=== PATIENT | male | born 1985 | race Caucasian/White ===

== ENCOUNTER 2023-04-22 22:12 | Inpatient (IN) | payer OTHER, SELFPAY ==
[2023-04-22 22:42] VITALS: BP 141/73; BP 159/96; PULSE 72; PULSE 77; RESP 13; TEMP 36.9; O2SAT 95; O2SAT 98; BMI 19.9
--- NOTE | 2023-04-22 22:48 | ED.GENADULT ---
HPI - General Adult General Chief complaint: Skin/Abscess/Foreign Body Stated complaint: OD Time Seen by Provider: 04/22/23 22:30 Source: patient and family Mode of arrival: EMS Limitations: no limitations History of Present Illness HPI narrative: Patient comes accompanied by his via ambulance. Patient complaining of cellulitis in his right thigh posteriorly. Patient states that ?something bit him?, patient admits to IV drug use. Patient states that 2 weeks ago he noticed a lump in his thigh and it has been getting much bigger and very painful. Patient can barely walk on his leg due to pain, patient complaining of subjective fever, no chills, no other injuries. Related Data Allergies Allergy/AdvReac Type Severity Reaction Status Date / Time doxycycline [From VIBRAMYCIN] Allergy Intermediate HIVES Unverified 04/22/23 23:36 acetaminophen [From VICODIN] Allergy Unknown DIFFICULTY Unverified 04/22/23 23:36 BREATHING hydrocodone [From VICODIN] Allergy Unknown DIFFICULTY Unverified 04/22/23 23:36 BREATHING Review of Systems Review of Systems: Constitutional : No Weight loss, No Fever, No Chills, No Night Sweats, complain of chronic fatigue ENT/Mouth : No Hearing loss, No Ear Pain, No Nasal Congestion, No Sinus Pain, No Hoarseness, No sore throat, No Rhinorrhea, No Swallowing Difficulty Eyes: No Eye Pain, No Swelling, No Redness, No Foreign Body, No Discharge, No Vision Changes Cardiovascular : No Chest Pain, No SOB, No Dyspnea on Exertion, No Orthopnea, No Edema, No Palpitations Respiratory : No Cough, No Sputum, No Wheezing, No Smoke Exposure, No Dyspnea Gastrointestinal : No Nausea, No Vomiting, No Diarrhea, No Constipation, No abdominal Pain, No Hematochezia, No Melena Genitourinary : no irregular bleeding, No Dysuria, No Urinary Frequency, No Hematuria, No Urinary Incontinence, No Urgency, No Flank Pain, No Urinary Flow Changes, No Hesitancy Musculoskeletal : No joint pain, No Myalgias, No Joint Swelling Skin : Complaining of cellulitis in the right lower extremity Neuro : No Weakness, No Numbness, No Paresthesias, No Loss of Consciousness, No Dizziness, No Headache Psych : No Anxiety/Panic, No Depression, No SI/HI/AH/VH, No Social Issues, Heme/Lymph: No Bruising, No Bleeding,No Lymphadenopathy Endocrine : No Polyuria, No Polydipsia, No Temperature Intolerance [facility] Past Medical History Medical History IV drug user Social History Social History Alcohol intake: current Smoked in Last 30 Days: Yes Use of substances other than those prescribed or required for medical reasons: Yes Substance Use Type: Heroin Substance Use Frequency: Chronic Longstanding Advance Directives: No Advance Directives Information Provided: Yes Physical Exam ED Vital Signs: Vital Signs - 24 hr 04/22/23 22:42 Temperature 98.4 F Pulse Rate 77 Respiratory Rate 13 Blood Pressure 141/73 H Pulse Oximetry 98 Oxygen Delivery Method Room Air BMI result Body Mass Index 19.9 Const Other: Appearance: Alert. Oriented X3. No acute distress. Eyes: Pupils equal, round and reactive to light. ENT: Pharynx normal. Neck: Normal inspection. Neck supple. No lymph nodes noted. No crepitus CVS: Normal heart rate and rhythm. Pulses normal. Normal S1 and S2 Respiratory: No respiratory distress. Breath sounds normal. No Wheezing. No rales Abdomen: Soft and nontender. No rigidity. No distention. Skin: Skin warm and dry. There is an abscess with ulceration in the posterior middle aspect of the right thigh with surrounding cellulitis Extremities: No lower extremity edema. No Lacerations. No Rash Neuro: Oriented X 3. No motor deficit. No sensory deficit. Moving all extremities. No slurred speech. CN 2 through 12 grossly intact Psych: calm, cooperative, normal affect Course Course Course Narrative: -all of patient's labs pending -patient's vitals are stable -patient receiving IV fluids, IV Zosyn, vancomycin, sepsis is not suspected Medications Administered Generic Name Dose Route Start Last Admin Trade Name Freq PRN Reason Stop Dose Admin Enoxaparin Sodium 40 mg 04/23/23 00:00 04/23/23 00:36 Enoxaparin Sodium 40 Mg/0.4 Ml Syringe SUBCUT Not Given Q24H BHAVANA Piperacillin Sod/Tazobactam 50 mls @ 100 mls/hr 04/23/23 00:00 04/23/23 00:35 Sod 3.375 gm/ Sodium Chloride IV Not Given Q6H BHAVANA Sodium Chloride 3 ml 04/23/23 00:00 04/23/23 00:36 0.9 % Sodium Chloride Flush 3 Ml Syringe IVFLUSH 3 ml QSHIFT BHAVANA Administration Discontinued Medications Generic Name Dose Route Start Last Admin Trade Name Rehan PRN Reason Stop Dose Admin Sodium Chloride 1,000 mls @ 999 mls/hr 04/22/23 22:40 04/23/23 00:00 Ns IVCONT 04/22/23 23:40 999 mls/hr .Q1H1M ONE Administration Piperacillin Sod/Tazobactam 50 mls @ 100 mls/hr 04/22/23 22:40 04/23/23 00:09 Sod 3.375 gm/ Sodium Chloride IV 04/22/23 23:09 100 mls/hr ONCE ONE Administration Vancomycin HCl 1,500 mg/ 500 mls @ 333.333 mls/hr 04/22/23 23:00 04/23/23 00:18 Sodium Chloride IV 04/23/23 00:29 333.33 mls/hr ONCE ONE Administration Vancomycin HCl 1,000 mg/ 270 mls @ 270 mls/hr 04/22/23 23:45 04/23/23 00:35 Sodium Chloride IV Not Given Q12H [facility] Medical Decision Making Medical Decision Making [facility] Narrative: -I discussed the patient with Dr. Hodges, patient being admitted -I considered draining the abscess. However, patient will need a thorough debridement tomorrow. The leg abscess does not seem significantly fluctuant, unlikely to get significant amount of pus -patient white blood cell count within normal limits. Blood pressure normal, no fever, sepsis not suspected. -Patient getting IV fluids, vancomycin, Zosyn. Differential Diagnosis Differential Diagnoses: The differential diagnosis associated with the presentation includes (Cellulitis, abscess) Admission/Observation Consideration of admission/observation: Escalation of care including admission/observation considered Consult Healthcare Provider Management of the patient was discussed with: Hospitalist Lab Data 04/22/23 23:57 04/22/23 23:57 Labs: Lab Results 04/22/23 Range/Units 23:57 WBC 9.1 (4.8-10.8) X10*3/uL RBC 4.97 (4.60-5.80) X10*6/uL Hgb 13.5 L (14.0-18.0) g/dl Hct 40.5 L (42.0-52.0) % MCV 81.5 (80.0-98.0) fL MCH 27.2 (27.0-33.0) pg MCHC 33.3 (31.0-36.0) g/dl RDW 12.8 (11.0-16.0) % Plt Count 246 (160-400) X10*3/uL MPV 10.7 (9.4-12.4) fL Immature Gran % (Auto) 0.3 (0.0-0.4) % Neut % (Auto) 75.0 H (45-73) % Lymph % (Auto) 16.6 L (20-40) % [place] % (Auto) 7.1 (2-11) % Eos % (Auto) 0.7 (0-4) % Baso % (Auto) 0.3 (0-2) % Lymph # (Auto) 1.5 (1.2-4.9) X10*3/uL [place] # (Auto) 0.6 (0.1-1.2) X10*3/uL Eos # (Auto) 0.1 (0.0-0.4) X10*3/uL Baso # (Auto) 0.0 (0.0-0.2) X10*3/uL Abs Immat Gran (auto) 0.03 (0.00-0.03) X10*3/uL Absolute Neuts (auto) 6.8 (2.0-8.3) x10*3/uL Absolute Nucleated RBC 0.000 (0.0-0.012) X10*3/uL Nucleated RBC % (auto) 0.0 (0.0-0.2) /100WBC Sodium 140 (135-145) mmol/L Potassium 3.3 (3.3-5.1) mmol/L Chloride 99 (96-108) mmol/L Carbon Dioxide 27 (22-29) mmol/L Anion Gap 17 (12-20) BUN 4 L (9-16) mg/dL Creatinine 0.67 (0.5-1.4) mg/dL Estim Creat Clear Calc 117.0 Estimated GFR > 60 Random Glucose 110 (60-115) mg/dL Lactic Acid 0.8 (0.5-2.0) mmol/L Calcium 9.5 (8.4-10.2) mg/dL Total Bilirubin 0.6 (0.0-1.0) mg/dL Direct Bilirubin 0.4 (0.0-0.5) mg/dL AST 32 (5-37) U/L ALT 34 (0-40) U/L Alkaline Phosphatase 86 (39-117) U/L Total Protein 7.8 (6.5-8.0) g/dL Albumin 3.8 (3.5-5.0) g/dL Ethyl Alcohol < 10 mg/dL Critical Care Time Critical Care Time Critical Care Time: Yes Total Critical Care Time: 60 Attestation: I have personally provided critical care time. Time includes review of lab data, radiology results, discussion with consultants, and monitoring for potential decompensation. Intervention performed as documented. Discharge Plan Discharge Clinical Impression: Cellulitis and abscess of leg Patient Disposition: Admitted As Inpatient
--- NOTE | 2023-04-22 23:11 | MHC.EDTECH ---
attempted blood work x2 unsuccessful. rn gerald aware
--- NOTE | 2023-04-22 23:59 | PM.IMHP ---
History of Present Illness Date of Service: 04/22/23 Chief Complaint: skin infection I was asked to see this patient who is a 37-year-old IV drug user for evaluation of an abscess in his right leg for management of cellulitis/abscess - patient is somnolent, appears to be very high on some sort of drug, therefore his mother was at bedside gives me most of the history. After admissions, start antibiotics, patient sobered up, woke up, and requesting to leave as he is withdrawing. I have offered him Dilaudid, as well as Suboxone, he took the Dilaudid, refuses Suboxone, now wants to leave AMA. I talked to the patient, he understands the risk is seeking by leaving which includes from sepsis, patient understands, patient has no suicidal homicidal ideation and will be leaving [facility] Medical History IV drug user Social History Alcohol intake: current Patient Tobacco Use Status: Current everyday Tobacco user Smoked in Last 30 Days: Yes Use of substances other than those prescribed or required for medical reasons: Yes Substance Use Type: Heroin Substance Use Frequency: Chronic Longstanding Advance Directives: No Advance Directives Information Provided: Yes Nutrition Risks: No Nutritional Risk Meds Allergies Allergy/AdvReac Type Severity Reaction Status Date / Time doxycycline [From VIBRAMYCIN] Allergy Intermediate HIVES Unverified 04/22/23 23:36 acetaminophen [From VICODIN] Allergy Unknown DIFFICULTY Unverified 04/22/23 23:36 BREATHING hydrocodone [From VICODIN] Allergy Unknown DIFFICULTY Unverified 04/22/23 23:36 BREATHING Active Medications: Current Medications Vancomycin HCl 1,500 mg/ (Sodium Chloride) 500 mls @ 333.333 mls/hr IV ONCE ONE Stop: 04/23/23 00:29 Pharmacy Consult (Consult Rx Vancomycin Dosing) 1 each MISCELLANE DAILY PRN PRN Reason: Consult order Physical Exam Vital Signs and Narrative: Vital Signs: Last Vital Signs Temp 98.4 F 04/22/23 22:42 Pulse 77 04/22/23 22:42 Resp 13 04/22/23 22:42 BP 141/73 H 04/22/23 22:42 Pulse Ox 98 04/22/23 22:42 O2 Del Method Room Air 04/22/23 22:42 BMI result Body Mass Index 19.9 Const: Other: On initial exam patient was obtunded, on repeat exam several hours later patient is alert, oriented to self and place, on requesting to leave AMA Skin: Other: Right posterior leg abscess/cellulitis Results Labs 04/22/23 23:57 04/22/23 23:57 Assessment and Plan (1) Injection site abscess: Qualifiers: Encounter type: initial encounter Qualified Code(s): T80.29XA - Infection following other infusion, transfusion and therapeutic injection, initial encounter Status: Acute Plan 37-year-old male with IV drug user comes into the hospital for management of abscess/cellulitis # injection site abscess/cellulitis - according to the mother he injects in that location - has an abscess, no leukocytosis, afebrile - started on antibiotic - patient now requesting to leave AMA Risk of leaving AMA which include sepsis and was explained to the patient, he understands and he still wants to leave AMA Time Spent With Patient Time: Total time managing care of this patient today ____ minutes. Quality Stroke Does the patient have a stroke diagnosis?: No VTE Prior VTE?: No VTE Risk Level:: Medical - moderate - high VTE Device Contraindication: Treatment Not Indicated VTE Drug Contraindication: N/A - Med Ordered
[2023-04-23] MEDS: 0.9 % Sodium Chloride 1,000 ML 999 ML IVCONT
[2023-04-23 00:04] LABS: MANUAL DIFF FLAG NO
[2023-04-23 00:07] LABS: Basophils Percent Auto 0.3 % (0-2); Eosinophils Absolute Auto 0.1 X10*3/uL (0.0-0.4); Eosinophils Percent Auto 0.7 % (0-4); Hematocrit 40.5 % (42.0-52.0); Hemoglobin 13.5 g/dl (14.0-18.0); Imm Gran Abs Auto 0.03 X10*3/uL (0.00-0.03); Imm Gran Pct Auto 0.3 % (0.0-0.4); Lymphocytes Absolute Auto 1.5 X10*3/uL (1.2-4.9); Lymphocytes Percent Auto 16.6 % (20-40); Mean Corpuscular HGB Conc 33.3 g/dl (31.0-36.0); Mean Corpuscular Hemoglobin 27.2 pg (27.0-33.0); Mean Corpuscular Volume 81.5 fL (80.0-98.0); Mean Platelet Volume 10.7 fL (9.4-12.4); Monocytes Absolute Auto 0.6 X10*3/uL (0.1-1.2); Monocytes Percent Auto 7.1 % (2-11); Neutrophils Absolute Auto 6.8 x10*3/uL (2.0-8.3); Platelet Count 246 X10*3/uL (160-400); Red Blood Count 4.97 X10*6/uL (4.60-5.80); Red Cell Distribution Width 12.8 % (11.0-16.0); White Blood Count 9.1 X10*3/uL (4.8-10.8)
[2023-04-23] MEDS: Piperacillin Sodium/Tazobactam 3.375 GM in 0.9 % Sodium Chloride 50 ML IV ×2 (00:09→05:30)
[2023-04-23 00:15] LABS: Lactic Acid 0.8 mmol/L (0.5-2.0)
[2023-04-23] MEDS: vancomycin HCL 1,500 MG in 0.9 % Sodium Chloride 500 ML 333.33 MG IV (00:18)
[2023-04-23 00:21] LABS: Alanine Aminotransferase 34 U/L (0-40); Albumin Level 3.8 g/dL (3.5-5.0); Alkaline Phosphatase 86 U/L (39-117); Anion Gap 17 (12-20); Aspartate Amino Transferase 32 U/L (5-37); Bilirubin Direct 0.4 mg/dL (0.0-0.5); Bilirubin Total 0.6 mg/dL (0.0-1.0); Blood Urea Nitrogen 4 mg/dL (9-16); Calcium 9.5 mg/dL (8.4-10.2); Carbon Dioxide 27 mmol/L (22-29); Chloride 99 mmol/L (96-108); Estimated Glomerular Filt Rate > 60; Ethanol < 10 mg/dL; Glucose Random 110 mg/dL (60-115); Potassium 3.3 mmol/L (3.3-5.1); Sodium 140 mmol/L (135-145); Total Protein 7.8 g/dL (6.5-8.0)
[2023-04-23] MEDS: 0.9 % Sodium Chloride Flush 3 ML SYRINGE IVFLUSH (00:36)
--- NOTE | 2023-04-23 04:34 | PC.NURSE ---
Pt continues to rest in stretcher without distress noted. RN alerted by Division Plant Engineer that the pt will kiko down to the 40s, lower heart rate noted by this RN was 44. production cloth cutter notified hospitalist via tigertext.
[2023-04-23] MEDS: oxyCODONE HCl Immed Release 5 MG TABLET PO (05:07)
[2023-04-23] MEDS: ondansetron HCL 4 MG/2 ML VIAL IVPUSH (05:07)
[2023-04-23] MEDS: HYDROmorphone HCl 1 MG/ML SYRINGE IVPUSH (05:21)
--- NOTE | 2023-04-23 06:29 | PC.NURSE ---
Pt reported feeling sick and having pain all over. Patient medicated with oxycodone and zofran with no relief. Patient reports using 7 bags of heroin at a time multiple times a day for several years and last use was at approximately 1700 on 04/22/2023. Pt said he needs to use or he is going to be sick. Pt having active vomiting discussed with Dr. Ibrahim and pt given dilaudid. Pt still having vomiting and cramping, discussed with MD and ordered for compazine and suboxone. Pt then refused stating he was going to leave. This RN discussed with patient the risks of leaving and requested he stay for treatment. Pt refused and said he wanted to leave. notified and came to bedside to discuss risks and pt leaving AMA. Pt still continued to leave ama. IV removed. pt belongings returned and patient left with mother,all paperwork signed.
--- NOTE | 2023-04-23 08:43 | MHC.CM.PN ---
Patient left AMA before being seen by case management.
--- NOTE | 2023-04-23 09:35 | P.DS_ITS ---
DS: Providers Provider Date of Service: 04/23/23 Date of admission: 04/22/23 23:58 Primary care physician: None Physician Consults: 04/23/23 05:13 Addiction Medicine Stat Consulting Provider: Addiction Covering Reason for consultation: ivdu Has provider been notified: No DS: Diagnosis Discharge Diagnosis (1) Injection site abscess: Status: Acute DS: Summary Hospital Course Hospital Course: See h and P. Pt left AMA just hours after admission and before shift change Final diagnosis: Cellulitis and abscess of arm Time Spent with Patient Time attestation: Total time managing care of this patient today ____ minutes. Discharge coordination time: Less than 30 minutes Quality: Safe Use of Opioids Does Pt have an Active Cancer Diagnosis on the Problem List?: No Quality: Stroke Does the patient have a stroke diagnosis?: No Physical Exam Vital Signs: Vital Signs: Last Vital Signs Temp 98.4 F 04/22/23 22:42 Pulse 77 04/22/23 22:42 Resp 13 04/22/23 22:42 BP 141/73 H 04/22/23 22:42 Pulse Ox 98 04/22/23 22:42 O2 Del Method Room Air 04/22/23 22:42 BMI result Body Mass Index 19.9 DS: Data Data Completed and Pending Labs on day of discharge: Laboratory Results - last 24 hr 04/22/23 23:57 WBC 9.1 RBC 4.97 Hgb 13.5 L Hct 40.5 L MCV 81.5 MCH 27.2 MCHC 33.3 RDW 12.8 Plt Count 246 MPV 10.7 Immature Gran % (Auto) 0.3 Neut % (Auto) 75.0 H Lymph % (Auto) 16.6 L [place] % (Auto) 7.1 Eos % (Auto) 0.7 Baso % (Auto) 0.3 Lymph # (Auto) 1.5 [place] # (Auto) 0.6 Eos # (Auto) 0.1 Baso # (Auto) 0.0 Abs Immat Gran (auto) 0.03 Absolute Neuts (auto) 6.8 Absolute Nucleated RBC 0.000 Nucleated RBC % (auto) 0.0 Sodium 140 Potassium 3.3 Chloride 99 Carbon Dioxide 27 Anion Gap 17 BUN 4 L Creatinine 0.67 Estim Creat Clear Calc 117.0 Estimated GFR > 60 Random Glucose 110 Lactic Acid 0.8 Calcium 9.5 Total Bilirubin 0.6 Direct Bilirubin 0.4 AST 32 ALT 34 Alkaline Phosphatase 86 Total Protein 7.8 Albumin 3.8 Ethyl Alcohol < 10 Discharge Plan Discharge Anticipated Discharge Date/Time: 04/23/23 09:37 Patient Disposition: Left Against Medical Advice Discharge Diagnosis: Cellulitis Referrals: Physician,None [Primary Care Provider] - 1 Week Discharge Medications: No Action Unobtainable Discharge Orders: Discharge Order (Routine); Ordered 04/23/23 Ordered By: Dirk Lundy Stand Alone Forms: Against Medical Advice Care Plan Goals: left ama Health Concerns: left ama Plan of Treatment: left ama Assessment: left ama
== END 2023-04-23 13:24 | disposition left against medical advice (07) | DRG 603 ==
LOC: HO.ED 23:06 → HO.EDOVER 04-23 00:06
PROVIDERS: Admitting Provider Internal Medicine; Emergency Provider Emergency Medicine; Visit Provider Internal Medicine
DX: L02.415 Cutaneous abscess of right lower limb (principal); L03.115 Cellulitis of right lower limb; F17.210 Nicotine dependence, cigarettes, uncomplicated; Z71.6 Tobacco abuse counseling
CPT/HCPCS: 36415; 80048; 80076; 80307; 83605; 85025; 87040; 99284; J1170; J2405; J2543; J3371

== ENCOUNTER → 2023-04-22 23:58 | Outpatient (BNV) | payer SELFPAY | PROVIDERS: Admitting Provider Internal Medicine; Emergency Provider Emergency Medicine; Visit Provider Internal Medicine | DX: T80.29XA Infection following other infusion, transfusion and therapeutic injection, initial encounter (principal); Z53.29 Procedure and treatment not carried out because of patient's decision for other reasons | CPT/HCPCS: 99223; 99238 ==

== ENCOUNTER 2024-07-04 01:08 | Emergency (ER) | payer MEDICAID, SELFPAY ==
--- NOTE | ~2024-07-04 | CT_ITS ---
EXAMINATION: CT HEAD WITHOUT CONTRAST CLINICAL INFORMATION: Left subdural hematoma. More altered. COMPARISON: CT head 06/11/2017. TECHNIQUE: Contiguous axial imaging was performed from the skull base to vertex without intravenous administration of contrast. This CT examination was performed using dose optimization techniques as appropriate, variously including the following: *Automated exposure control *Adjustment of mA and/or kV according to patient size (this includes techniques or standardized protocols for targeted exams where dose is matched to indication/reason for exam; i.e. extremities or head) *Use of iterative reconstruction technique DLP: 683 mGy-cm FINDINGS: A high density extra-axial fluid collection measuring 3 mm in width is present in the anterior left middle cranial fossa adjacent to the anterior left temporal lobe. Mild diffuse symmetric prominence of ventricles and sulci is noted. No acute infarcts or intracranial tumor is noted. A gas-fluid levels present in the sphenoid sinus (60 Hounsfield units) suspicious for sanguinous fluid. The mastoid air cells and middle ear cavities are clear. Close scrutiny of the sphenoid sinus demonstrates no definitive fractures of the sphenoid sinus. A nondisplaced fracture is present in the left greater wing of the sphenoid extending into the squamous portion of the left temporal bone. A punctate focus of pneumocephalus is present adjacent to the fracture and the left middle cranial fossa extra-axial fluid collection noted above. Nondisplaced fracture of the lateral wall of the left orbit is noted. The fracture extends into the superior margin of the lateral wall of the left maxillary sinus. Mild left retromaxillary soft tissue emphysema is present. Soft tissue and this edema is additionally noted along the anterolateral wall of the left maxillary sinus and a nondisplaced fracture extends along the anterior wall the left maxillary sinus. Possible nondisplaced fracture is noted in the middle segment of the left diaphragmatic arch. Soft tissue inflammatory changes are present adjacent to the left side, and frontal process of the left zygoma. The left globe appears intact. No orbital emphysema identified. Nasal bones are partially excluded from the imaged field of view. Mildly displaced comminuted fracture of the left nasal bone is present and adjacent soft tissue inflammatory changes are noted in the adjacent subcutaneous fat. Nondisplaced lucencies are noted along the lateral aspect of the sphenoid sinus traversing a left lateral sphenoid air cell (series 6 image 80 and along the left lateral aspect of the sphenoid sinus traversing a left lateral sphenoid air cell (series 6 image 83). Punctate minimal pneumocephalus is present along the dorsum sellae (series 6 image 73) suggesting an open skull fracture. CT/CT head/brain wo IV con IMPRESSION: *Left zygomaticomaxillary fracture complex and adjacent intracranial hemorrhage. Minimally displaced fractures are noted in association with the left zygomatic arch, lateral wall of the left orbit, anterior and lateral rojas of the maxillary sinus and left greater wing of the sphenoid with the fracture extending into the squamous portion of the left temporal bone. Additionally, a 3 mm acute extra-axial hemorrhage is present in the anterior left middle cranial fossa adjacent to the fracture of the greater wing of the sphenoid. This finding could represent either a subdural or epidural hematoma. The fluid collection demonstrates a crescentic configuration suggesting it is more likely to represent a subdural hematoma. A single punctate focus of pneumocephalus is present in the extra-axial hemorrhage. No evidence of contusion of the adjacent left temporal lobe. *Comminuted left nasal bone fractures. *Hemorrhage within the sphenoid sinus and possible nondisplaced open fractures of the rojas of the sphenoid sinus. Findings suspicious for an open skull fracture. Single screw is present within the sphenoid sinus. Findings suspicious for possible nondisplaced fractures are noted within the left lateral aspect of the sphenoid sinus, specifically traversing the left lateral sphenoid air cell. Additionally a nondisplaced fracture may be present within a right lateral sphenoid air cell. Minimal pneumocephalus is present along the posterior margin of the posterior wall of the sphenoid sinus further suggesting the presence of an open skull fracture. This critical result was discussed with Dr. Levy STEINBERG by telephone at 07/04/2024 5:57 AM EST and it was ascertained that the content and urgency of the report was understood at the time of direct communication. Electronically signed by: Eliezer Franco MD 07/04/2024 06:04 AM EST
[2024-07-04 01:31] VITALS: BP 155/77; PULSE 86; PULSE 97; RESP 20; TEMP 37.3; O2SAT 97; BMI 21.3
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
[2024-07-04] MEDS: methADONE HCl 20 MG/2 ML ORAL.CONC 80 MG PO (01:52)
--- NOTE | 2024-07-04 02:02 | MHC.EDTECH ---
patient refusing labs to drawn RN aware.
[2024-07-04] MEDS: LORazepam 1 MG TABLET 2 MG PO ×2 (02:18→03:37)
[2024-07-04] MEDS: oxyCODONE HCl Immed Release 5 MG TABLET PO (02:18)
[2024-07-04 02:43] LABS: Appearance Urine Cloudy; Color Urine Yellow; Glucose Urine UA Negative (Negative); Leukocyte Esterase Urine Negative (Negative); Nitrite Urine Negative (Negative); Specific Gravity - Urine >= 1.030 (1.005-1.025); Urine Blood Negative (Negative); Urine Ketones Negative (Negative); Urine Protein Trace mg/dL (Neg-Trace)
[2024-07-04 02:51] LABS: Amphetamine Screen Urine Not Detected (Not Detect); Barbiturates, Urine Not Detected (Not Detect); Benzodiazepines Screen Urine Not Detected (Not Detect); Buprenorphine Scr Not Detected (Not Detect); Cannabinoid Screen Urine Not Detected (Not Detect); Cocaine Screen Urine POSITIVE (Not Detect); Fentanyl, urine POSITIVE (Not Detect); Methadone Screen, Urine Positive (Not Detect); Opiate Screen Urine POSITIVE (Not Detect); Oxycodone Screen Urine Not Detected (Not Detect); Phencyclidine Screen Urine Not Detected (Not Detect)
[2024-07-04] MEDS: OLANZapine ODT 10 MG TAB.RAPDIS TRANSLINGU (03:37)
[2024-07-04 03:57] LABS: Basophils Percent Auto 0.1 % (0-2); Hematocrit 37.2 % (42.0-52.0); Hemoglobin 12.4 g/dl (14.0-18.0); Imm Gran Abs Auto 0.02 X10*3/uL (0.00-0.03); Imm Gran Pct Auto 0.2 % (0.0-0.4); Lymphocytes Absolute Auto 0.9 X10*3/uL (1.2-4.9); MANUAL DIFF FLAG NO; Mean Corpuscular HGB Conc 33.3 g/dl (31.0-36.0); Mean Corpuscular Hemoglobin 27.1 pg (27.0-33.0); Mean Corpuscular Volume 81.2 fL (80.0-98.0); Mean Platelet Volume 10.6 fL (9.4-12.4); Monocytes Absolute Auto 0.7 X10*3/uL (0.1-1.2); Monocytes Percent Auto 7.7 % (2-11); Neutrophils Absolute Auto 7.5 x10*3/uL (2.0-8.3); Platelet Count 187 X10*3/uL (160-400); Red Blood Count 4.58 X10*6/uL (4.60-5.80); Red Cell Distribution Width 13.5 % (11.0-16.0); White Blood Count 9.1 X10*3/uL (4.8-10.8)
[2024-07-04 04:15] LABS: Anion Gap 15 (12-20)
[2024-07-04 04:31] LABS: Alanine Aminotransferase 76 U/L (0-40); Albumin Level 3.8 g/dL (3.5-5.0); Aspartate Amino Transferase 57 U/L (5-37); Bilirubin Total 0.4 mg/dL (0.0-1.0); Blood Urea Nitrogen 10 mg/dL (9-16); Calcium 8.9 mg/dL (8.4-10.2); Carbon Dioxide 27 mmol/L (22-29); Chloride 102 mmol/L (96-108); Estimated Glomerular Filt Rate > 60; Ethanol < 10 mg/dL; Glucose Random 95 mg/dL (60-115); Potassium 3.9 mmol/L (3.3-5.1); Sodium 139 mmol/L (135-145); Total Protein 7.7 g/dL (6.5-8.0)
[2024-07-04 04:52] LABS: Alkaline Phosphatase 90 U/L (39-117)
[2024-07-04 06:00] VITALS: BP 117/62; PULSE 68; RESP 20; TEMP 36.7; O2SAT 97
[2024-07-04] MEDS: OLANZapine 10 MG VIAL IM (06:50)
[2024-07-04] MEDS: Midazolam HCl/PF 2 MG/2 ML VIAL 6 MG IM (06:52)
--- NOTE | 2024-07-04 07:09 | PC.NURSE ---
attempted to call report to [facility], no answer
--- NOTE | 2024-07-04 07:12 | PC.NURSE ---
second attempt to call [facility] for report failed
--- NOTE | 2024-07-04 07:15 | PC.NURSE ---
Third attempt to call [facility] for report failed. no answer.
[2024-07-04 07:18] VITALS: BP 117/62; PULSE 68; RESP 20; TEMP 36.7; O2SAT 97
== END 2024-07-04 07:14 | disposition short-term general hospital (02) ==
PROVIDERS: Emergency Provider Emergency Medicine
DX: R41.82 Altered mental status, unspecified (principal); S06.30AA Unspecified focal traumatic brain injury with loss of consciousness status unknown, initial encounter; S02.80XA Fracture of other specified skull and facial bones, unspecified side, initial encounter for closed fracture; S42.002A Fracture of unspecified part of left clavicle, initial encounter for closed fracture; S42.302A Unspecified fracture of shaft of humerus, left arm, initial encounter for closed fracture; X58.XXXA Exposure to other specified factors, initial encounter; Y93.89 Activity, other specified; Y92.9 Unspecified place or not applicable; Y99.9 Unspecified external cause status
CPT/HCPCS: 36415; 70450; 80053; 80307; 81003; 85025; 96372; 99285; J2250; J2359

== ENCOUNTER 2024-08-21 14:01 | Outpatient (REF) | payer MEDICAID, SELFPAY ==
--- NOTE | ~2024-08-21 | XR_ITS ---
EXAMINATION: XR FOREARM, LEFT CLINICAL INFORMATION: prior fracture COMPARISON: Close nondisplaced fracture of clavicle TECHNIQUE: AP and lateral views of the left forearm were obtained. FINDINGS- XR/XR forearm LT 2V IMPRESSION: There are mid Radial and distal ulnar fractures tube lies with dorsal plates and screws in satisfactory alignment. No soft tissue abnormality seen. In addition there is dorsal metallic circular ring and screws overlying the wrist stabilizing the dorsal carpal bones. It appears the scaphoid bone has been removed. Dorsal soft tissue swelling is seen. Electronically signed by: Bakari Wright MD 08/21/2024 02:59 PM EST
--- NOTE | ~2024-08-21 | XR_ITS ---
EXAMINATION: XR SHOULDER 2 OR MORE VIEWS LEFT HISTORY: history of L clavicle fracture COMPARISON: Comparison is made with the prior examination dated 06/07/2014. FINDINGS: Three views of the left shoulder are submitted. Osseous mineralization is normal. There is a fracture of the midshaft of the clavicle with inferior displacement of the distal fracture fragment and overriding of fracture fragments of approximately 5 cm. Callus formation is seen at the fracture site consistent with healing. The AC joint space is maintained. The soft tissues are unremarkable. XR/XR shoulder LT min 2V IMPRESSION: Healing fracture of the midshaft of the left clavicle as described. Electronically signed by: Candido Hendrix MD 08/21/2024 02:55 PM EST
--- OUTSIDE RECORDS SUMMARY | 2024-08-21 18:32 | XMS_ITS | Encounter Summary ---
Author Organization [employer] [facility] Address [address] [facility] 7[address] [place] [address] Care Team Providers Care Creative Assistant Name Role Phone Syl Martin MD Primary Care Provider [phone] Reason for Visit * Reason Comments New patient Encounter Details Date Type Department Care Team (Late st Contact Info) Description 08/21/2024 1:00 PM EST Office Visit [facility] [address] [place] [address] Syl Martin MD [address] [place] [address] Closed nondisplaced oblique fracture of shaft of left ulna, initial encounter (Primary Dx); Asthma, unspecified asthma severity, unspecified whether complicated, unspecified whether persistent; Closed nondisplaced fracture of clavicle with routine healing, unspecified laterality, unspecified part of clavicle, subsequent encounter; Chronic hepatitis C without hepatic coma (CMS/HCC) Social History Tobacco Use Types Packs/Day Years Used Date Smoking Tobacco: Every Day Cigarettes Smokeless Tobacco: Current Tobacco Cessation:Ready to Q uit: Not Asked; Counseling Given: Not Answered Alcohol Use Standard Drinks/Week Comments Not Currently 0 (1 standard drink = 0.6 oz pur e alcohol) Housing Stability Answer Date Recorded What is your housing situation today? I have sonal brown 08/10/[address] you li ve. Do you have problems with any of the following? None of the above 08/10/2024 Food Insecurity Answer Date Recorded Within the past 12 months, y ou worried that your food would run out before you got money to buy more: Never True 08/10/2024 Within the past 12 months,th e food you bought just didn't last and you didn't have enough money to get more: Never True Transportation Answer Date Recorded In the past 12 months, has l ack of transportation kept you from medical appts, meetings, work or from getting things needed for daily living? Yes, it has kept me from medical appointments or getting medications. 08/10/2024 Utilities Answer Date Recorded In the past 12 months, has t he electric, gas, oil or water company threatened to shut off services in your home? No 08/10/2024 Internet Access Answer Date Recorded Internet Access Q1 Yes 08/10/2024 Internet Access Q2 Not on file 08/10/2024 Sex and Gender Information Value Date Recorded Sex Assigned at Male 05/25/2022 10:19 AM EDT Legal Sex Male 10:19 AM EDT Gender Identity Male 07/20/2024 1:46 PM EST Sexual Orientation Straight 07/20/2024 1: 46 PM EST documented as of this encounter Last Filed Vital Signs Vital Sign Reading Time Taken Comments Blood Pressure 142/95 08/21/2024 12:58 PM EST Pulse 71 08/21/2024 12:58 PM EST Temperature 36.6 ??C (97.8 ??F) 08/21/2024 12:[address] Respiratory Rate 16 08/21/2024 12:58 PM EST Oxygen Saturation 99% 08/21/2024 12:58 PM EST Inhaled Oxygen Concentration - - Weight 57.6 kg (127 lb) 08/21/2024 12:58 PM EST Height 167.6 cm (5' 6 ) 08/21/2024 12:58 PM EST Body Mass Index 20.5 08/21/2024 12:58 PM EST documented in this encounter Plan of Treatment Scheduled Orders Name Type Priority Associated Diagnoses Orde r Schedule HIV-1/2 Antigen and Antibodies, Fourth Generation, with Reflexes Lab Routine Chronic hepatitis C without hepatic coma (CMS/HCC) Expected: 08/21/2024 (Approximate), Expires: 08/21/2025 RPR (Monitor) with Reflex to??Titer Lab Routine Chronic hepatitis C without hepatic coma (CMS/HCC) Expected: 08/21/2024, Expires: 08/21/2025 Hepatitis C Antibody with Reflex to HCV, RNA, Quantitative, Real-Time PCR Lab Routine Chronic hepatitis C without hepatic coma (CMS/HCC) Expected: 08/21/2024, Expires: 08/21/2025 Comprehensive Metabolic Panel Lab Routine Chronic hepatitis C without hepatic coma (CMS/HCC) Expected: 08/21/2024 (Approximate), Expires: 08/21/2025 documented as of this encounter Procedures Procedure Name Priority Date/Time Associated Diagnosis Comments XR FOREARM 2 VIEWS LEFT Routine 08/21/2024 2:02 PM EST Closed nondisplaced oblique fracture of shaft of left ulna, initial encounter XR SHOULDER 2+ VIEWS LEFT Routine 08/21/2024 2:02 PM EST Closed nondisplaced fracture of clavicle with routine healing, unspecified laterality, unspecified part of clavicle, subsequent encounter documented in this encounter Results * XR Shoulder 2+ Views Left (08/21/2024 2:02 PM EST) Anatomical Region Laterality Modality Upper Extremities, Shoulder Left Radi ographic Imaging 08/21/2024 2:02 PM EST Narrative 08/21/2024 2:58 PM EST ?[facility] ?[address] ?[place] [address] ?XRay Report ? Signed ? Patient: Galen Ngo ?MR#: [id number] ? : 1985 ?Acct:[id number] ? Age/Sex: 38 / M ?ADM Date: 08/21/24 ? Loc: HO.HHCX ? Attending Dr: Syl Martin MD ? Ordering Physician: Syl Martin ?? Date of Service: 08/21/24 ?? Procedure(s): XR shoulder LT min 2V ?? Accession Number(s): [id number] ? cc: Syl Martin ? EXAMINATION: ??XR SHOULDER 2 OR MORE VIEWS LEFT ? HISTORY: history of L clavicle fracture ? COMPARISON: Comparison is made with the prior examination dated ?? 06/07/2014. ? FINDINGS: ? Three views of the left shoulder are submitted. ??Osseous mineralization ?? is normal. ??There is a fracture of the midshaft of the clavicle with ?? inferior displacement of the distal fracture fragment and overriding of ?? fracture fragments of approximately 5 cm. Callus formation is seen at ?? the fracture site consistent with healing. ??The AC joint space is ?? maintained. ??The soft tissues are unremarkable. ? XR/XR shoulder LT min 2V ?? IMPRESSION: ? Healing fracture of the midshaft of the left clavicle as described. ? Electronically signed by: ??Candido Hendrix MD ??08/21/2024 02:55 PM EST ? Dictated By: ?Candido Hendrix MD ? Signed By: ?<Electronically signed by Candido Hendrix MD in OV> ?08/21/24 1455 ? DD/ 1402 ? TD/TT: 08/21/24 1427 ? Asphalt Layer: ? Procedure Note Donradhater, Image - 08/21/2024 [place] [address] XRay Report Signed Patient: Patrick Ngo#: [id number] : 1985Acct:[id number] Age/Sex: 38 / MADM Date: 08/21/24 Loc: HO.HHCX Attending Dr: Syl Martin MD Ordering Physician: Syl Martin Date of Service: 08/21/24 Procedure(s): XR shoulder LT min 2V Accession Number(s): [id number] cc: Syl Martin EXAMINATION: XR SHOULDER 2 OR MORE VIEWS LEFT HISTORY: history of L clavicle fracture COMPARISON: Comparison is made with the prior examination dated 06/07/2014. FINDINGS: Three views of the left shoulder are submitted. Osseous mineralization is normal. There is a fracture of the midshaft of the clavicle with inferior displacement of the distal fracture fragment and overriding of fracture fragments of approximately 5 cm. Callus formation is seen at the fracture site consistent with healing. The AC joint space is maintained. The soft tissues are unremarkable. XR/XR shoulder LT min 2V IMPRESSION: Healing fracture of the midshaft of the left clavicle as described. Electronically signed by: Candido Hendrix MD 08/21/2024 02:55 PM EST Dictated By: Candido Hendrix MD Signed By: <Electronically signed by Candido Hendrix MD in OV> 08/21/24 1455 DD/ 1402 TD/TT: 08/21/24 1427 Asphalt Layer: us Syl Martin MD IMG XR PROCEDURES Final Result * XR Forearm 2 Views Left (08/21/2024 2:02 PM EST) Anatomical Region Laterality Modality Upper Extremities, Forearm Left Radio graphic Imaging 08/21/2024 2:02 PM EST Narrative 08/21/2024 3:02 PM EST ?[facility] ?[address] ?[place] [address] ?XRay Report ? Signed ? Patient: Moiseggi,Galen ?MR#: [id number] ? : 1985 ?Acct:[id number] ? Age/Sex: 38 / M ?ADM Date: 08/21/24 ? Loc: HO.HHCX ? Attending Dr: Syl Martin MD ? Ordering Physician: Syl Martin ?? Date of Service: 08/21/24 ?? Procedure(s): XR forearm LT 2V ?? Accession Number(s): [id number] ? cc: Syl Martin ? EXAMINATION: ?? XR FOREARM, LEFT ? CLINICAL INFORMATION: ?? prior fracture ? COMPARISON: ?? Close nondisplaced fracture of clavicle ? TECHNIQUE: ?? AP and lateral views of the left forearm were obtained. ? FINDINGS- ? XR/XR forearm LT 2V ?? IMPRESSION: ?? There are mid Radial and distal ulnar fractures tube lies with dorsal ?? plates and screws in satisfactory alignment. No soft tissue abnormality ?? seen. In addition there is dorsal metallic circular ring and screws ?? overlying the wrist stabilizing the dorsal carpal bones. It appears the ?? scaphoid bone has been removed. ? Dorsal soft tissue swelling is seen. ? Electronically signed by: ??Bakari Wright MD ??08/21/2024 02:59 PM EST RP ? Dictated By: ?Bakari Wright MD ? Signed By: ?<Electronically signed by Bakari Wright MD in OV> ?08/21/24 1459 ? DD/ 1402 ? TD/TT: 08/21/24 1427 ? Asphalt Layer: MSM ? Procedure Note Donotuseinterpreter, Image - 08/21/[address] [address] XRay Report Signed Patient: Patrick Ngo#: [id number] : 1985Acct:[id number] Age/Sex: 38 / MADM Date: 08/21/24 Loc: .HHCX Attending Dr: Syl Martin MD Ordering Physician: Syl Martin Date of Service: 08/21/24 Procedure(s): XR forearm LT 2V Accession Number(s): [id number] cc: Syl Martin EXAMINATION: XR FOREARM, LEFT CLINICAL INFORMATION: prior fracture COMPARISON: Close nondisplaced fracture of clavicle TECHNIQUE: AP and lateral views of the left forearm were obtained. FINDINGS- XR/XR forearm LT 2V IMPRESSION: There are mid Radial and distal ulnar fractures tube lies with dorsal plates and screws in satisfactory alignment. No soft tissue abnormality seen. In addition there is dorsal metallic circular ring and screws overlying the wrist stabilizing the dorsal carpal bones. It appears the scaphoid bone has been removed. Dorsal soft tissue swelling is seen. Electronically signed by: Bakari Wright MD 08/21/2024 02:59 PM [facility] Dictated By: Bakari Wright MD Signed By: <Electronically signed by Bakari Wright MD in OV> 08/21/24 1459 DD/ 1402 TD/TT: 08/21/24 1427 Asphalt Layer: [facility] Syl Martin MD IMG XR PROCEDURES Final Result documented in this encounter Visit Diagnoses Diagnosis Closed nondisplaced oblique fracture of shaft of left ulna, initial encounter- Primary Asthma, unspecified asthma severity, unspecified whether complicated, unspecified whether persistent Closed nondisplaced fracture of clavicle with routine healing, unspecified laterality, unspecified part of clavicle, subsequent encounter Chronic hepatitis C without hepatic coma (CMS/HCC) documented in this encounter Care Teams Creative Assistant Relationship Specialty Start Date End Date Syl Martin MD [address] [place] [address] PCP - General Family Medicine 08/21/24 documented as of this encounter
--- OUTSIDE RECORDS SUMMARY | 2024-08-21 18:32 | XMS_ITS | Encounter Summary ---
Author Organization [employer] Address [address] [facility] 7[address] [place] [address] Care Team Providers Care Ancillary Services Manager Therapy Name Role Phone Unavailable Primary Care Provider Unavailabl e Reason for Visit * Reason Comments Pre-visit Planning SDOH Screening posit jaye and Tobacco screening positive Encounter Details Date Type Department Care Team ([facility] st Contact Info) Description 08/10/2024 Patient Outreach [facility] [address] [place] [address] Syl Martin MD [address] [place] [address] Pre-visit Planning (SDOH Screening positive and Tobacco screening positive) Social History Tobacco Use Types Packs/Day Years Used Date Smoking Tobacco: Never Assessed Housing Stability Answer Date Recorded What is [...] PM EST documented as of this encounter Progress Notes * Hayley Cardona - 08/10/2024 10:42 AM EST RASHAWN Saldaña placed successful outbound call to patient for pre-visit planning. Patient name and confirmed. Patient confirms appt date and time, and has transportation arrangements. Biggest concern for appointment at this time is has few concerns but will discuss it with PCP. Patient advised tobring to appointment a photo id and insurance card. Appropriate screenings completed in anticipation of appointment. Tobacco screening positive. Will need counseling. SDOH positive. Patient looking for assistance with Transportation. Referral will be placed. documented in this encounter Plan of Treatment Not on file documented as of this encounter Visit Diagnoses Not on filedocumented in this encounter
--- OUTSIDE RECORDS SUMMARY | 2024-08-21 18:32 | XMS_ITS | Encounter Summary ---
Author Organization [employer] Address [address] [facility] [address] [place] [address] Care Team Providers Care Tower Dragline Operator Name Role Phone Unavailable Primary Care Provider Unavailabl e Reason for Visit * Reason Onset Date Comments Appointment 07/24/2024 Encounter Details Date Type Department Care Team (Late st Contact Info) Description 07/24/2024 Telephone [facility] [address] [place] [address] Wilder Jerez [place] Appointment Social History Tobacco Use Types Packs/Day Years Used Date Smoking Tobacco: Never Assessed Sex and Gender Information Value Date Recorded Sex Assigned at Male 05/25/2022 10:19 AM EDT Legal Sex Male 10:19 AM EDT Gender Identity Male 07/20/2024 1:46 PM EST Sexual Orientation Straight 07/20/2024 1: 46 PM EST documented as of this encounter Miscellaneous Notes * Telephone Encounter - Wilder Jerez MA - 07/24/2024 10:04 AM EST Called Galen and let him know that I made an appointment with [facility] to remove his stiches per Dr. Gordon. Let mother know that the appointment is for 07/31/23 @ 3PM. Patient confirmed andagreed to go to the appointment. documented in this encounter Plan of Treatment Not on file documented as of this encounter Visit Diagnoses Not on filedocumented in this encounter
--- OUTSIDE RECORDS SUMMARY | 2024-08-21 18:32 | XMS_ITS | Encounter Summary ---
Author Organization [employer] Address [address] [facility] [address] [place] [address] Care Team Providers Care Demolition Expert Name Role Phone Unavailable Primary Care Provider Unavailabl e Reason for Visit * Reason Comments CHARLY Recovery Supports Encounter Details Date Type Department Care Team ([facility] st Contact Info) Description 08/01/2024 Patient Outreach [facility] [address] [place] [address] Roverto Marshall Recovery Supports Social History Tobacco Use Types Packs/Day Years Used Date Smoking Tobacco: Never Assessed Sex and Gender Information Value Date Recorded Sex Assigned at Male 05/25/2022 10:19 AM EDT Legal Sex Male 10:19 AM EDT Gender Identity Male 07/20/2024 1:46 PM EST Sexual Orientation Straight 07/20/2024 1: 46 PM EST documented as of this encounter Progress Notes * Roverto Marshall - 08/01/2024 10:52 AM EST I met with Galen today. Setting: in person at [facility] Recovery Wellness Goals worked on: Social Stability Action taken/next steps: Offered person centered recovery support and Attended alcohol and drug free activity Additional comments: This morning, the participant arrived at the center and met with the legal recovery specialist to discuss their recovery process and work on improving various aspects of their life. The participant expressed a desire to be admitted to a detox treatment center to begin their recovery journey and continue the process toward healing. The legal recovery specialist encouraged the participant to return to the center tomorrow to continue working on the plan and take steps toward getting admitted to a detox treatment center. Roverto Marshall documented in this encounter Plan of Treatment Not on file documented as of this encounter Visit Diagnoses Not on filedocumented in this encounter
--- OUTSIDE RECORDS SUMMARY | 2024-08-21 18:32 | XMS_ITS | Encounter Summary ---
Author Organization [employer] Address [address] [facility] [address] [place] [address] Care Team Providers Care Well Drill Operator Cable Tool Name Role Phone Unavailable Primary Care Provider Unavailabl e Reason for Visit * Reason Comments RC Recovery Supports Encounter Details Date Type Department Care Team ([facility] st Contact Info) Description 07/31/2024 Patient Outreach [facility] [address] [place] [address] Roverto Marshall Recovery Supports Social History Tobacco [...] encounter Progress Notes * Roverto Marshall - 07/31/2024 10:50 AM EST I met with Galen today. Setting: by phone Recovery Wellness Goals worked on: Social Stability Action taken/next steps: Offered person centered recovery support Additional comments: The women's lacrosse coach reached out to the participant this morning to touch base regarding the servicesand resources available at the center, aimed at empowering his recovery process and helping him build a positive and productive network with other participants in recovery. The participant mentioned that he would be coming to the center tomorrow to discuss the services the center offers in more depth. Roverto Marshall documented in this encounter Plan of Treatment Not on file documented as of this encounter Visit Diagnoses Not on filedocumented in this encounter
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
--- OUTSIDE RECORDS SUMMARY | 2024-08-21 18:32 | XMS_ITS | Encounter Summary ---
Author Organization [employer] Address [address] [place] [address] Care Team Providers Care Farm Agent Name Role Phone Syl Martin MD Primary Care Provider [phone] Encounter Details Date Type Department Care Team (Latest Contact Info) Description 08/21/2024 Travel Social History Tobacco Use Types Packs/Day Years Used Date Smoking Tobacco: Every Day Cigarettes Smokeless Tobacco: Current Alcohol Use Standard Drinks/Week Comments Not Currently [...] PM EST documented as of this encounter Plan of Treatment Not on file documented as of this encounter Visit Diagnoses Not on filedocumented in this encounter Care Teams Farm Agent Relationship Specialty Start Date End Date Syl Martin MD [address] [place] [id number] PCP - General Family Medicine 08/21/24 documented as of this encounter
--- OUTSIDE RECORDS SUMMARY | 2024-08-21 18:32 | XMS_ITS | Encounter Summary ---
Author Organization [employer] [facility] Address [address] [place] [address] Care Team Providers Care Technical Services Manager Name Role Phone Unavailable Primary Care Provider Unavailabl e Reason for Visit * Reason Comments Care Coordination Outreach Encounter Details Date Type Department Care Team (Latest Contact Info) Description 08/02/2024 Patient Outreach [facility] [address] [place] [address] Syl Martin MD [address] [place] [address] Care Coordination (Outreach) Social History Tobacco Use Types Packs/Day Years Used Date Smoking Tobacco: Never Assessed Sex and Gender Information Value Date Recorded Sex Assigned at Male 05/25/2022 10:19 AM EDT Legal Sex Male 10:19 AM EDT Gender Identity Male 07/20/2024 1:46 PM EST Sexual Orientation Straight 07/20/2024 1: 46 PM EST documented as of this encounter Progress Notes * Katie Putnam - 08/02/2024 11:59 PM EST CHW Katie Putnam called patient to introduce Adult Complex Care Program. Patient's name, and Address was confirmed. Program information was provided to the patient. Patient states he will be going to a detox program and doesn't know when he will be discharge. Patient declined to participate in program. Provided patient with direct contact information for future reference. documented in this encounter Plan of Treatment Not on file documented as of this encounter Visit Diagnoses Not on filedocumented in this encounter
--- OUTSIDE RECORDS SUMMARY | 2024-08-21 18:32 | XMS_ITS | Encounter Summary ---
Author Organization [employer] [facility] Address [address] [place] [address] [address] [place] [address] Care Team Providers Care Respiratory Therapy Director Name Role Phone Unavailable Primary Care Provider Unavailabl e Reason for Visit * Reason Onset Date Comments plan of care 07/27/2024 ? Status of S UD Rx? On 07/09/24 pt was on methadone 50 mg-Pt has ortho follow up 07/31/23-Maxillofacial referral accepted, appointment to be made-F/U Dr. Martin 08/21/23-[facility] referral- unsure if visiting? TC made to [facility] 07/27/24 Encounter Details Date Type Department Care Team (Late st Contact Info) Description 07/27/2024 Telephone [facility] [address] [place] [address] Yesika Mason RN plan of care ( ? Status of LIYA Rx? On 07/09/24 pt was on methadone 50 mg/-Pt has ortho follow up 07/31/23/-Maxillofacial referral accepted, appointment to be made/-F/U Dr. Martin 08/21/23/-[facility]NA referral- unsure if visiting? TC made to [facility] 07/27/24) Social History Tobacco Use Types Packs/Day Years Used Date Smoking Tobacco: Never Assessed Sex and Gender Information Value Date Recorded Sex Assigned at Male 05/25/2022 10:19 AM EDT Legal Sex Male 10:19 AM EDT Gender Identity Male 07/20/2024 1:46 PM EST Sexual Orientation Straight 07/20/2024 1: 46 PM EST documented as of this encounter Miscellaneous Notes * Telephone Encounter - Yesika Mason RN - 07/27/2024 1:56 PM EST Status of follow up orders from [facility] visit 07/20/24: From [facility] CM Jesika Ye RN on 07/27/24: we haven't started working with him yet. I have an initial assessment with him on 07/31. Per previous notes, you had faxed all the needed paperwork to [facility] 2) TC to [facility] to check status of [facility] home visits. VM left to check status of home visits -pt's phonenumber left for their return call and follow up. 3) appointment with Dr. Martin on 08/21/24 at 1:00pm. Patient agrees to be seen on the date 4) appointment with [facility] to remove his stiches per Dr. Gordon. Let mother know that the appointment is for 07/31/23 @ 3PM. Patient confirmed and agreed 5) referral generated:--letter sent to pt. Evaluate and treat [facility] Patient Appointment Information Location: [address] [place] [address] FAX [phone] documented in this encounter Plan of Treatment Not on file documented as of this encounter Visit Diagnoses Not on filedocumented in this encounter
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
--- OUTSIDE RECORDS SUMMARY | 2024-08-21 18:32 | XMS_ITS | Encounter Summary ---
Author Organization [employer] Address [address] [facility] [address] [place] [address] Care Team Providers Care Loader Unloader Name Role Phone Unavailable Primary Care Provider Unavailabl e Reason for Visit * Reason Comments [facility] Recovery Supports Encounter Details Date Type Department Care Team ([facility] Contact Info) Description 08/17/2024 Patient Outreach [facility] [address] [place] [address] [facility] Recovery Supports Social History Tobacco Use Types Packs/Day Years Used Date Smoking Tobacco: Never Assessed Housing Stability Answer Date Recorded What is your housing situation today? I have sonal stephanie 08/10/[address] you li [...] encounter Progress Notes * Roverto Marshall - 08/17/2024 1:28 PM EST I met with Galen hoffman. Setting: in person at [facility] Recovery Wellness Goals worked on: Physical Health/Mental Health and Social Stability Action taken/next steps: Offered person centered recovery support and Attended alcohol and drug free activity Additional the participant expressed appreciation for the support that received by the pipe recovery specialist made a real positive impact in helping Him get into detox treatment. also the Case Specialist encouraging him to continue focusing on their recovery by attending weekly support group meetings. Roverto Marshall documented in this encounter Plan of Treatment Not on file documented as of this encounter Visit Diagnoses Not on filedocumented in this encounter
--- OUTSIDE RECORDS SUMMARY | 2024-08-21 18:32 | XMS_ITS | Encounter Summary ---
Author Organization [employer] Address [address] [facility] [address] [place] [address] Care Team Providers Care Hot Baller Name Role Phone Unavailable Primary Care Provider Unavailabl e Reason for Visit * Reason Comments Care Coordination CHW outreach for SDO H PT-1 and food needs-referral completed Encounter Details Date Type Department Care Team (Latest Contact Info) Description 08/10/2024 Patient Outreach [facility] [address] [place] [address] Syl Martin MD [address] [place] [address] Care Coordination (CHW outreach for SDOH PT-1 and food needs-referral completed /) Social History Tobacco Use Types Packs/Day Years [...] as of this encounter Progress Notes * Chi Wills - 08/10/2024 11:42 AM EST CHW Chi Wills, placed outbound call to patient for assistance with SDOH as a referral was received by the provider. Patient's name and were confirmed. Patient screened positive for the following SDOH food insecurities. CHW referral patient to the local list of pantries in the area for help. PT-1 requested was send out in behalf of patient for futures appt. Patient verbalizes understandin g, and able to agree with plan to follow up. Patient educated on extended clinic hours on Mondays through Wednesdays, and Walk-In Urgent Care Located in [facility] of [facility]. Patient provided with after-hours line for [facility], , which offer night time triage service and option to transfer to farm contractor buyer provider if needed. documented in this encounter Plan of Treatment Not on file documented as of this encounter Visit Diagnoses Not on filedocumented in this encounter
--- OUTSIDE RECORDS SUMMARY | 2024-08-21 18:32 | XMS_ITS | Encounter Summary ---
Author Organization [employer] Address [address] [facility] 7t [place] [address] Care Team Providers Care Drawing Kiln Supervisor Name Role Phone Unavailable Primary Care Provider Unavailabl e Reason for Visit * Reason Comments CHARLY Recovery Supports Encounter Details Date Type Department Care Team ([facility] st Contact Info) Description 08/02/2024 Patient Outreach [facility] MEDICINE [address] [place] [address] Roverto Marshall Recovery Supports Social History Tobacco [...] encounter Progress Notes * Roverto Marshall - 08/02/2024 3:01 PM EST I met with Galen hoffman. Setting: in person at [facility] Recovery Wellness Goals worked on: Physical Health/Mental Health and Social Stability Action taken/next steps: Offered person centered recovery support, Attended alcohol and drug free activity, Provided transportation assistance (bus pass, uber, etc.), and Referred to detox/another level of care Additional comments: he participant arrived at the center this morning to proceed with the treatment plan and to be admitted to a detox treatment facility. The recovery engineer immediately contacted the detox facility to begin the intake assessment process for the participant's admission. While waiting, transportation arrangements were made to ensure the participant Was transported to the detox facility. At the end of the process, the recovery engineer provided the participant with His work phone number to stay in touchfor further information. Roverto Marshall documented in this encounter Plan of Treatment Not on file documented as of this encounter Visit Diagnoses Not on filedocumented in this encounter
--- OUTSIDE RECORDS SUMMARY | 2024-08-21 18:32 | XMS_ITS | Encounter Summary ---
Author Organization [employer] Address [address] [facility] 7[address] [place] [address] Care Team Providers Care Wordpress Developer Name Role Phone Unavailable Primary Care Provider Unavailabl e Reason for Visit * Reason Comments Care Coordination Outreach Encounter Details Date Type Department Care Team (Latest Contact Info) Description 07/31/2024 Patient Outreach [facility] [address] [place] [address] Syl Martin MD [address] [place] [address] Care Coordination (Outreach) Social History Tobacco Use Types Packs/Day Years Used Date Smoking Tobacco: Never Assessed Sex and Gender Information Value Date Recorded Sex Assigned at Male 05/25/2022 10:19 AM EDT Legal Sex Male 10:19 AM EDT Gender Identity Male 07/20/2024 1:46 PM EST Sexual Orientation Straight 07/20/2024 1: 46 PM EST documented as of this encounter Progress Notes * Katie Putnam - 07/31/2024 10:56 AM EST CHW Katie Putnam , placed outbound call to patient in regards to offer services. CHW introducing herself from [facility] CM Department with CHW's name, department and direct contact [phone] requesting call back. Will re-attempt to contact within 5 days. and address not confirmed. documented in this encounter Plan of Treatment Not on file documented as of this encounter Visit Diagnoses Not on filedocumented in this encounter
== END 2024-08-21 14:02 | disposition home or self-care (01) ==
LOC: HO.HHCX 14:01
PROVIDERS: Visit Provider General Practice
DX: S52.235A Nondisplaced oblique fracture of shaft of left ulna, initial encounter for closed fracture (principal); S42.009D Fracture of unspecified part of unspecified clavicle, subsequent encounter for fracture with routine healing
CPT/HCPCS: 73030; 73090

== ENCOUNTER → 2024-08-21 14:02 | Outpatient (BNV) | payer MEDICAID, SELFPAY | PROVIDERS: Visit Provider Radiology Diagnostic Radiology | DX: S42.022D Displaced fracture of shaft of left clavicle, subsequent encounter for fracture with routine healing (principal); S52.92XA Unspecified fracture of left forearm, initial encounter for closed fracture; S52.602A Unspecified fracture of lower end of left ulna, initial encounter for closed fracture | CPT/HCPCS: 73030; 73090 ==

== ENCOUNTER 2024-09-15 08:04 | Outpatient (REF) | payer MEDICAID, SELFPAY ==
--- NOTE | ~2024-09-15 | XR_ITS ---
EXAMINATION: XR CLAVICLE LEFT HISTORY: M89.8X1 - Other specified disorders of bone, shoulder COMPARISON: Comparison is made with the prior examination dated 08/21/2024. FINDINGS: Two views of the left clavicle are submitted. Osseous mineralization is normal. Again seen is a fracture of the midshaft of the clavicle with overriding of fracture fragments. There appears to be slightly greater callus formation consistent with healing. The AC joint space is preserved. The soft tissues are unremarkable. XR/XR clavicle LT IMPRESSION: Healing fracture of the midshaft of the left clavicle. Electronically signed by: Candido Hendrix MD 09/19/2024 08:20 AM [place]
--- OUTSIDE RECORDS SUMMARY | 2024-09-15 08:10 | XMS_ITS | Encounter Summary ---
Author Organization [employer] Address [address] [facility] 7[address] [place] [address] Care Team Providers Care Serology Teacher Name Role Phone Syl Martin MD Primary Care Provider [phone] Reason for Visit * Reason Onset Date Comments telephone call 08/28/2024 Encounter Details Date Type Department Care Team ([facility] st Contact Info) Description 08/28/2024 Telephone [facility] MEDICINE [address] [place], [place] [phone] Syl Martin MD [address] [place], [place] [phone] telephone call Social History Tobacco Use Types Packs/Day Years Used Date Smoking Tobacco: Every Day Cigarettes Smokeless Tobacco: Current Alcohol Use Standard Drinks/Week Comments Not Currently 0 (1 standard drink = 0.6 oz pur e alcohol) Housing Stability Answer Date Recorded What is your housing situation today? I have sonalkayleigh brown 08/10/[address] you [...] encounter Miscellaneous Notes * Telephone Encounter - Kaia Mendoza - 08/28/2024 1:17 PM EST Fd tried reaching pt multiple times to schedule follow up appointment for October unable to get in contact with pt. Requested a call back to schedule this appointment. Pt was placed on recall for November. Appt notes: fractures and pain documented in this encounter Plan of Treatment Not on file documented as of this encounter Visit Diagnoses Not on filedocumented in this encounter Care Teams Serology Teacher Relationship Specialty Start Date End Date Syl Martin MD [address] [place] [phone] PCP - General Family Medicine 08/21/24 documented as of this encounter
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
--- OUTSIDE RECORDS SUMMARY | 2024-09-15 08:11 | XMS_ITS | Encounter Summary ---
Author Organization [employer] Address [address] [facility] [address] [place] [address] Care Team Providers Care Park Warden Name Role Phone Syl Martin MD Primary Care Provider [phone] Encounter Details Date Type Department Care Team [...] on filedocumented in this encounter Care Teams Park Warden Relationship Specialty Start Date End Date Syl Martin MD [address] [place] [address] PCP - General Family Medicine 08/21/24 documented as of this encounter
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
--- OUTSIDE RECORDS SUMMARY | 2024-09-15 08:11 | XMS_ITS | Encounter Summary ---
Author Organization [employer] Address [address] [facility] [address] [place] [address] Care Team Providers Care Chicken Raiser Name Role Phone Unavailable Primary Care Provider Unavailabl e Reason for Visit * Reason Comments [facility] Recovery Supports Encounter Details Date Type Department Care Team ([facility] Contact Info) Description 08/17/2024 Patient Outreach [facility] [address] [place] [address] [facility] Recovery Supports Social History Tobacco [...] with Galen hoffman. Setting: in person at [facility] Recovery Wellness Goals worked on: Physical Health/Mental Health and Social Stability Action taken/next steps: Offered person centered recovery support and Attended alcohol and drug free activity Additional the participant expressed appreciation for the support that received by the transition coach made a real positive impact in helping Him get into detox treatment. also the Furnace Process Plant Operator encouraging him to continue focusing on their recovery by attending weekly support group meetings. Roverto Marshall documented in this encounter Plan of Treatment Not on file documented as of this encounter Visit Diagnoses Not on filedocumented in this encounter
== END 2024-09-15 08:05 | disposition home or self-care (01) ==
LOC: HO.HOSX 08:04
DX: M89.8X1 Other specified disorders of bone, shoulder (principal); S42.002A Fracture of unspecified part of left clavicle, initial encounter for closed fracture
CPT/HCPCS: 73000; 99212

== ENCOUNTER 2024-09-15 12:39 | Outpatient (AMB) | payer MEDICAID, SELFPAY ==
--- OUTSIDE RECORDS SUMMARY | 2024-09-15 13:10 | XMS_ITS | Encounter Summary ---
Author Organization [employer] Address [address] [facility] [address] [place] [address] Care Team Providers Care Logging Rafter Laborer Name Role Phone Syl Martin MD Primary Care Provider [phone] Encounter Details Date Type Department Care Team [...] on filedocumented in this encounter Care Teams Logging Rafter Laborer Relationship Specialty Start Date End Date Syl Martin MD [address] [place] [phone] PCP - General Family Medicine 08/21/24 documented as of this encounter
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
--- OUTSIDE RECORDS SUMMARY | 2024-09-15 13:10 | XMS_ITS | Encounter Summary ---
Author Organization [employer] Address [address] [facility] [address] [place] [address] Care Team Providers Care [employer] Name Role Phone Unavailable Primary Care Provider Unavailabl e Reason for Visit * Reason Comments [facility] Recovery Supports Encounter Details Date Type Department Care Team ([facility] Contact Info) Description 08/17/2024 Patient Outreach [facility] [address] [place] [address] Roverto Marshall Recovery Supports Social History Tobacco [...] Galen hoffman. Setting: in person at [facility] Recovery Wellness Goals worked on: Physical Health/Mental Health and Social Stability Action taken/next steps: Offered person centered recovery support and Attended alcohol and drug free activity Additional the participant expressed appreciation for the support that received by the reading recovery teacher made a real positive impact in helping Him get into detox treatment. also the Canvas Worker encouraging him to continue focusing on their recovery by attending weekly support group meetings. Roverto Marshall documented in this encounter Plan of Treatment Not on file documented as of this encounter Visit Diagnoses Not on filedocumented in this encounter
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
--- OUTSIDE RECORDS SUMMARY | 2024-09-15 13:10 | XMS_ITS | Encounter Summary ---
Author Organization [employer] Address [address] [facility] 7t [place] [address] Care Team Providers Care Lard Renderer Name Role Phone Syl Martin MD Primary Care Provider [phone] Reason for Visit * Reason Onset Date Comments telephone call 08/28/2024 Encounter Details Date Type Department Care Team ([facility] st Contact Info) Description 08/28/2024 Telephone [facility] [address] [place], [place] [phone] Syl Martin MD [address] [place], [place] [phone] telephone call Social History Tobacco Use Types [...] on filedocumented in this encounter Care Teams Lard Renderer Relationship Specialty Start Date End Date Syl Martin MD [address] [place] [address] PCP - General Family Medicine 08/21/24 documented as of this encounter
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
[2024-09-15 13:23] VITALS: BMI 19.8
== END 2024-09-15 14:05 | disposition home or self-care (01) ==
DX: S42.002A Fracture of unspecified part of left clavicle, initial encounter for closed fracture (principal); Z04.3 Encounter for examination and observation following other accident
CPT/HCPCS: 99203

== ENCOUNTER → 2024-09-15 12:46 | Outpatient (BNV) | payer MEDICAID, SELFPAY | PROVIDERS: Visit Provider Radiology Diagnostic Radiology | DX: S42.022D Displaced fracture of shaft of left clavicle, subsequent encounter for fracture with routine healing (principal) | CPT/HCPCS: 73000 ==